=== PATIENT | male | born 1950 | race Caucasian/White ===

== ENCOUNTER → 2018-06-19 | Day surgery (SDC) | payer OTHER ==
[2018-06-18 13:22] LABS: BASOPHILS % 0.5 % (0.0-1.0); EOSINOPHILS # (AUTO) 0.1 (0.0-0.4); EOSINOPHILS % 1.5 % (0.0-6.0); HEMATOCRIT 47.2 % (38.2-49.6); HEMOGLOBIN 16.7 g/dL (14.0-18.0); LYMPHOCYTES # (AUTO) 1.8 (1.0-3.2); LYMPHOCYTES % 21.9 % (18.0-39.1); MEAN CORPUSCULAR HEMOGLOBIN 30.6 pg (28-32); MEAN CORPUSCULAR HGB CONC 35.4 g/dL (31-35); MEAN CORPUSCULAR VOLUME 86.6 fL (81-99); MONOCYTES # (AUTO) 0.6 (0.2-0.8); MONOCYTES % 7.2 % (4.4-11.3); NEUTROPHILS # (AUTO) 5.6 (2.1-6.9); NEUTROPHILS % 67.9 % (38.7-80.0); PLATELET COUNT 188 x10e3/uL (140-360); RED BLOOD COUNT 5.45 x10e6/uL (4.3-5.7)
[2018-06-18 13:50] LABS: ALANINE AMINOTRANSFERASE 36 IU/L (0-55); ALBUMIN 4.3 g/dL (3.5-5.0); ALBUMIN/GLOBULIN RATIO 1.8 (0.8-2.0); ALKALINE PHOSPHATASE 87 IU/L (40-150); ANION GAP 14.1 mmol/L (8-16); BLOOD UREA NITROGEN 11 mg/dL (7-26); BUN/CREATININE RATIO 12 (6-25); CALCIUM 9.1 mg/dL (8.4-10.2); CARBON DIOXIDE 24 mmol/L (22-29); CHLORIDE 104 mmol/L (98-107); EST GLOMERULAR FILTRATION RATE > 60 ML/MIN (60-); GLUCOSE 104 mg/dL (74-118); POTASSIUM 4.1 mmol/L (3.5-5.1); SODIUM 138 mmol/L (136-145)
[~2018-06-19] VITALS: Ht 185.4 cm; Wt 143.3 kg
[2018-06-19] VITALS (18 sets, daily range): BP systolic 121–155; BP diastolic 43–97
[~2018-06-19] MED LIST: ALPRAZOLAM 0.5 MG TAB ONE; ATORVASTATIN CA10 MG PO; DIPHENHYDRAMINE HCL 25 MG CAP ONE; EPTIFIBATIDE 10 ML ONE; FENTANYL CITRATE/PF 100MCG/2 ML INJ ONE; HEPARIN SOD (PORCINE) 1000 UNIT/ML 30ML ONE; HEPARIN SOD/SOD CHLORIDE 2,000 ML ONE; IOPAMIDOL 370 MG/ML 200 ML INFUS..BTL INJ ONE; LIDOCAINE 1% W/EPINEPHRINE 20 ML VIAL ONE; LIDOCAINE HCL 2% LOCAL 20 ML VIAL ONE; METFORMIN HCL500 MG PO; MIDAZOLAM HCL 2 MG/2 ML VIAL ONE; NITROGLYCERIN/D5W 200 MCG/ML 250 ML ONE; PRASUGREL 10 MG TAB ONE; RAMIPRIL10 MG PO; SODIUM CHLORIDE 0.9% 1000ML 1,000 ML ONE; VITAMIN B PO; [UNRECOGNIZED DRUG - OTHER] PO
--- NOTE | 2018-06-19 13:21 | Operative Report ---
DATE OF PROCEDURE: June 19, 2018 INDICATIONS: Coronary artery disease, abnormal stress test with congestive heart failure. PROCEDURES PERFORMED: 1. Left heart catheterization, selective coronary angiography. 2. Selective cannulation of 1 arterial and 2 venous bypass conduits. 3. Percutaneous transluminal coronary angioplasty and stent placement to the mid and proximal right coronary artery. 4. Deployment of right groin Mynx closer device. COMPLICATIONS: None. RECOMMENDATIONS: Dual antiplatelet therapy, ideally lifelong. BLOOD LOSS: 10 mL. Access was obtained in the right femoral artery. A 6-Kinyarwanda sheath was placed. Diagnostic coronary angiogram revealed a patent left main. Ramus intermedius was a small vessel and was widely patent. Circumflex was occluded in its proximal portion. Left anterior descending artery was occluded in its proximal portion. Right coronary artery was a large dominant vessel. Proximally there was 80% focal stenosis. The vessel then supplied grade 3-4 collaterals to the circumflex system. Left internal mammary artery bypass to left anterior descending artery was widely patent. Saphenous vein bypass to 1st diagonal artery was widely patent. Saphenous vein bypass to obtuse marginal artery was occluded. A decision was made to intervene on the patient's right coronary artery. The patient received intravenous heparin and oral Effient and intracoronary Integrilin for anticoagulation. The right coronary artery was cannulated using a JR4 wire. A short [employer] Flex wire was advanced across the right coronary artery lesion for support, pre-dilatation with a 2 mm balloon, following which a single 2.75 x 15 and 2.75 x 12 mm Resolute Tomi stents were deployed with excellent end result, 0% residual restenosis, DWIGHT-3 flow, and excellent filling of the circumflex via collaterals. The guide and sheath were removed. Right groin repaired using Mynx closure device. Patient was discharged home same day. Job#: [id number]
== END | disposition home or self-care (01) ==
LOC: CATH LAB 07:23
PROVIDERS: ATTEND Internal Medicine Interventional Cardiology
DX: I25.810 Atherosclerosis of coronary artery bypass graft(s) without angina pectoris (principal); I50.9 Heart failure, unspecified; R94.39 Abnormal result of other cardiovascular function study; Z95.1 Presence of aortocoronary bypass graft; Z01.812 Encounter for preprocedural laboratory examination; Z79.84 Long term (current) use of oral hypoglycemic drugs
CPT/HCPCS: 36415; 80053; 85025; 92928; 93455; C1725 ×2; C1769; J1327; J1644; J2001; J2250; J7030; Q9967